=== PATIENT | female | born 1990 | race Two or more races ===

== ENCOUNTER 2022-12-06 17:11 | Emergency (ER) | payer OTHER ==
[~2022-12-06] VITALS: Ht 165.1 cm; Wt 94.3 kg
[2022-12-06] MEDS ORDERED: ONDANSETRON ODT 4 MG TAB PO ONE (22:30)
[2022-12-06] MEDS ORDERED: HYDROcodone-ACET 5/325MG TAB PO ONE (22:30)
[2022-12-06] MEDS ORDERED: HYDR-4902 PO (22:50)
[2022-12-06] MEDS ORDERED: CYCL-611 PO (22:50)
[2022-12-06 23:35] VITALS: BP 129/91; PULSE 74; RESP 18; O2SAT 98
== END 2022-12-06 23:47 | disposition home or self-care (01) ==
LOC: ER 17:11
DX: S33.5XXA Sprain of ligaments of lumbar spine, initial encounter (principal); S30.1XXA Contusion of abdominal wall, initial encounter; M25.532 Pain in left wrist; M25.531 Pain in right wrist; W22.8XXA Striking against or struck by other objects, initial encounter; Y93.89 Activity, other specified; Y92.89 Other specified places as the place of occurrence of the external cause; Y99.8 Other external cause status
CPT/HCPCS: 71250; 74176; 99284; Q0162